=== PATIENT | male | born 1990 | race Hispanic/Latino ===

== ENCOUNTER 2022-09-07 15:30 | Outpatient (CLI) | payer BC, SELFPAY ==
--- NOTE | ~2022-09-07 | XR_ITS ---
XR hand RT min 3V DATE: 09/07/2022 15:45 INDICATION: Punched wall 4 days ago. Pain at fourth and fifth metacarpal bones TECHNIQUE: 3 views COMPARISON: None FINDINGS: There is prominent soft tissue swelling of the hand dorsally. There is a transverse linear nondisplaced fracture of the midshaft of the third metacarpal bone. Old healed fracture deformity of the base of the fifth metacarpal bone. No other fracture or dislocation is detected. No erosive change. IMPRESSION: Nondisplaced transverse third metacarpal shaft fracture Old fifth metacarpal fracture Reviewed, dictated and finalized at location L. ROOM EXECUTIVE DIRECTOR
== END 2022-09-07 15:31 ==
PROVIDERS: PCP Family Medicine; Visit Provider Chiropractor
DX: S62.352A Nondisplaced fracture of shaft of third metacarpal bone, right hand, initial encounter for closed fracture (principal)
CPT/HCPCS: 73130

== ENCOUNTER 2023-02-09 08:48 | Outpatient (CLI) | payer OTHER, SELFPAY ==
--- NOTE | 2023-02-21 17:22 | WPDHOMESLEEP ---
Sleep Study - Home Unattended Date of Study: 02/09/23 Ordering Provider: Tushar Joshi MD Interpreting Provider: Flakita Strickland MD Home Sleep Study Type: Watch PAT Height: 1.75 m Weight: 136.078 kg Body Mass Index: 44.3 Neck Circumference (inches): 18 [place]: 7 Reason for Sleep Study Hypersomnia, non-restorative sleep, snoring Sleep History Bo Anders is a 32-year-old male with history of hypertension, recurrent sinusitis, allergies, asthma, and anxiety who underwent a home sleep test ordered by his primary care provider for evaluation of snoring, non-restorative sleep, and daytime hypersomnia. He occasionally awakens from sleep short of breath. He occasionally awakens at night with heartburn, belching or cough. He constantly snores and snores loud enough for others to complain. He frequently has trouble sleeping when he has a cold. He occasionally wakes up gasping for breath during the night. He constantly has breathing problems at night. He constantly sweats excessively at night. He never falls asleep during the day. He does not fall asleep involuntarily and never falls asleep while driving. He frequently notices his heart pounding or beating irregularly during the night. He occasionally experiences loss of muscle tone with strong emotion. He never feels paralyzed on waking or falling asleep. He does not experience vivid dreams upon waking or falling asleep. He rarely feels afraid of going to sleep. He rarely has nightmares. He rarely recalls his dreams. He occasionally has thoughts racing through his mind. He occasionally feels sad or depressed. He occasionally feels anxiety or worry about things. He rarely notices parts of his body jerk. He never kicks during the night. He rarely feels crawling or aching feelings in his legs. He occasionally feels leg pain at night. He does not grind his teeth during sleep and rarely has morning jaw pain. He occasionally feels bothered by pain during the day and is rarely awakened by pain during the night. He frequently wakes up feeling stiff in the morning and frequently wakes up feeling sore and achy in the morning with pain in his neck, spine, or joints. Normal bedtime is around 10:30 ? 11:30pm on the weekdays and same on the weekends, feeling like he takes a long time to fall asleep. He typically gets about 5 to 6 hours of sleep per night. His wake-up time is around 5am on the weekdays and 6am on the weekends. He rarely wakes up during the night, on occasion he may wake up 1 to 3 times, awake for 5 or 10 minutes before falling back to sleep. He occasionally watches television before falling asleep. Habits: Never tobacco smoker. Caffeine use is about 1 coffee per day. No alcohol use. Occasionally uses marijuana. [facility] Past Medical History Medical History Acute non-recurrent maxillary sinusitis Allergies Anxiety Asthma BMI 39.0-39.9,adult Borderline high blood pressure Chewing tobacco nicotine dependence 1/2 can daily Encounter for medical examination to establish care Fatigue Hypersomnia Hypertension Mild asthma (Unknown) Morbid obesity with BMI of 40.0-44.9, adult Palpitations Pharyngitis Right hand fracture Third metacarpal Screening for diabetes mellitus Seasonal allergies Surgical History Surgical History History of knee surgery right History of surgery on wrist right Family History Family History Father Alcoholism Diabetes mellitus Hypertension Mother Hypertension Depression Social History Social History Smoking status: Never smoker Smokeless tobacco user: chewing tobacco Additional smoking assessment comments: 1/4-1/2 can per day Alcohol intake: current Alcohol use details: occassionally Substance use: current Substance use
[2023-02-21 17:29] VITALS: BMI 44.3
== END 2023-02-10 11:52 | disposition home or self-care (01) ==
PROVIDERS: PCP Family Medicine; Visit Provider Family Medicine
DX: G47.33 Obstructive sleep apnea (adult) (pediatric) (principal); I10 Essential (primary) hypertension
CPT/HCPCS: 95800